=== PATIENT | female | born 1950 | race Two or more races ===

== ENCOUNTER 2022-02-24 14:43 | Outpatient (CLI) | payer OTHER ==
[2022-03-01] MEDS ORDERED: HYDR-3980 PO (12:41)
[2022-03-01] MEDS ORDERED: MAGN400T26 PO (12:41)
[2022-03-01] MEDS ORDERED: APIX5TAB PO (12:41)
[2022-03-01] MEDS ORDERED: PANT40TA49 PO (12:41)
== END 2022-02-24 23:59 | disposition home or self-care (01) ==
LOC: LAB 14:43
PROVIDERS: ATTEND Specialist
DX: Z01.812 Encounter for preprocedural laboratory examination (principal); Z20.822 Contact with and (suspected) exposure to COVID-19
CPT/HCPCS: 87426; U0003; C9803

== ENCOUNTER 2022-02-27 06:19 | Inpatient (IN) | payer OTHER ==
[~2022-02-27] VITALS: Ht 154.9 cm; Wt 59.9 kg
[~2022-02-27 06:19] MED LIST: ANESTHESIA TRAY IN PYXIS 1 EA TRAY MC ONE; BUPIVACAINE 0.5 % PF 150 MG/30 ML VIAL ONE; FENTANYL PF 100MCG/2ML AMPUL ONE; ROCURONIUM BROMIDE 50 MG/5 ML ONE
[2022-02-27] MEDS ORDERED: BUPIVACAINE 0.5 % PF 150 MG/30 ML VIAL ONE (06:21)
[2022-02-27] MEDS ORDERED: BUPIVACAINE 0.25% 75 MG/30 ML VIAL ONE (06:21)
[2022-02-27] MEDS ORDERED: POLYMYXIN B SULFATE 500,000 UNITS ONE (06:21)
--- NOTE | 2022-02-27 06:50 | NUR ---
RN NOTE PATIENT SCHEDULED FOR RIGHT TOTAL KNEE ARTHROPLASTY AT 6:30 AM, BUT PATIENT ARRIVED AT 6:31 AM. PER SURGERY JUST CHANGED PATIENT INTO GOWN AND HAD PATIENT SIGN CONSENT FORMS. MRSA SWAB DONE, VITAL SIGNS TAKEN. PATIENT'S WALKER AND BELONGINGS AT BEDSIDE. PATIENT TAKEN TO OR
[2022-02-27] MEDS ORDERED: TRANEXAMIC ACID 3,000 MG in SODIUM CHLORIDE IRRIG SOLUTION 70 ML IR ONE (07:00)
--- NOTE | 2022-02-27 07:25 | NUR ---
MS RN NOTE PATIENT AT OPERATING ROOM SCHEDULED FOR RIGHT KNEE ARTHROPLASTY UNDER DR. RIOS.
[2022-02-27] MEDS ORDERED: FENTANYL PF 100MCG/2ML AMPUL ONE (09:36)
[2022-02-27] MEDS ORDERED: PANTOPRAZOLE 40 MG TABLET.DR PO ONE (09:40)
[2022-02-27] MEDS: PANTOPRAZOLE 40 MG TABLET.DR PO SCH (10:00)
[2022-02-27] MEDS ORDERED: LORAZEPAM 0.5 MG TABLET PO PRN (10:00)
[2022-02-27] MEDS ORDERED: CLONIDINE HCL 0.1 MG TABLET PO PRN (10:00)
[2022-02-27] MEDS ORDERED: MAGNESIUM HYDROXIDE 30 ML UDC PO PRN (10:00)
[2022-02-27] MEDS ORDERED: HYDROCODONE/APAP 10/325MG TABLET PO PRN (10:00)
[2022-02-27] MEDS ORDERED: diphenhydrAMINE HCL 25 MG CAPSULE PO PRN (10:00)
[2022-02-27] MEDS ORDERED: MENTHOL/CETYLPYRD (CEPACOL) 1 LOZ LOZENGE PO PRN (10:00)
[2022-02-27 10:11] LABS: HEMOGLOBIN 11.8 g/dL (11.5-14.8)
[2022-02-27 11:00] VITALS: BP 132/66
[2022-02-27] MEDS ORDERED: IV D5/0.45 NACL 1,000 ML IV ONE (11:00)
[2022-02-27] MEDS: HYDROMORPHONE 1 MG/1 ML DISP.SYRIN IV PRN (11:25)
--- NOTE | 2022-02-27 11:35 | NUR ---
MS RN NOTE RECEIVED FROM OR TRANSPORTED VIA BED, PATIENT IS ALERT AND ORIENTED X 4, ABLE TO MAKE NEEDS KNOWN. ON ROOM AIR, WITH EQUAL AND UNLABORED BREATHING. PATIENT IN BED, WITH HOB ELEVATED, ALERT AND ORIENTED X4. AFEBRILE AND NOT IN ANY FORM OF ACUTE DISTRESS. BREATHING EVEN AND NON LABORED. NO C/O PAIN OR DISCOMFORT. WITH IV ACCESS ON L FOREARM 22G . S/P RIGHT KNEE TOTAL ANROTHOPLASTY WITH RIGHT LEG COVERED WITH ELASTIC BANDAGE WITH IMMOBILIZER. DRESSING DRY AND INTACT. SAFETY MEASURES IN PLACE. KEPT BED IN LOCKED AND IN LOW POSITION. SIDE RAILS UP X2. NO COMPLAIN OF PAIN AT THIS TIME. COMFORT MEASURES PROVIDED. IN STABLE CONDITION. DR. CASTILLO NOTIFIED OF PATIENT FOR MEDICAL ADMISSION.
[2022-02-27] MEDS ORDERED: DEXL60CA3 PO (11:58)
[2022-02-27] MEDS ORDERED: ICOS1CAP PO (11:58)
[2022-02-27] MEDS ORDERED: LORA-259 PO (11:58)
[2022-02-27] MEDS ORDERED: ASPI-992 PO (11:58)
[2022-02-27] MEDS ORDERED: ATOR10TA PO (11:58)
[2022-02-27] MEDS ORDERED: ZOLP10TA2 PO (11:58)
[2022-02-27] MEDS ORDERED: LEVO88TA39 PO (11:58)
[2022-02-27] MEDS ORDERED: BEMP1TAB PO (11:58)
[2022-02-27] MEDS ORDERED: OLME1TAB16 PO (11:58)
[2022-02-27] MEDS ORDERED: LORAZEPAM 1 MG TABLET PO PRN (13:00)
[2022-02-27] MEDS ORDERED: ZOLPIDEM TARTRATE 10 MG TABLET PO PRN (13:00)
[2022-02-27] MEDS: HYDROCODONE/APAP 5/325MG TABLET PO PRN (15:02)
[2022-02-27] MEDS: ANCEF 1 GM/50 ML D5W IV SCH ×4 (15:04→22:15)
[2022-02-27 16:00] VITALS: BP 104/56
[2022-02-27] MEDS ORDERED: Medication Not On Formulary EA (Icosapent Ethyl (Vascepa) 2 GM) PO SCH (17:00)
--- NOTE | 2022-02-27 19:00 | NUR ---
MS RN CLOSING NOTE PATIENT IS ALERT AND ORIENTED X 4, ABLE TO MAKE NEEDS KNOWN. ON ROOM AIR, WITH EQUAL AND UNLABORED BREATHING. PATIENT IN BED, WITH HOB ELEVATED, ALERT AND ORIENTED X4. AFEBRILE AND NOT IN ANY FORM OF ACUTE DISTRESS. BREATHING EVEN AND NON LABORED. NO C/O PAIN OR DISCOMFORT. WITH IV ACCESS ON L FOREARM 22G . S/P RIGHT KNEE TOTAL ANROTHOPLASTY WITH RIGHT LEG COVERED WITH ELASTIC BANDAGE WITH IMMOBILIZER. DRESSING DRY AND INTACT. SAFETY MEASURES IN PLACE. KEPT BED IN LOCKED AND IN LOW POSITION. SIDE RAILS UP X2. PT DONE AND TOLERATED WELL. PATIENT HAD CPM MACHINE FOR 2 HOURS WITH MINIMAL PAIN. NO COMPLAIN OF PAIN AT THIS TIME. COMFORT MEASURES PROVIDED. IN STABLE CONDITION. ENDORSED TO NEXT SHIFT FOR CONTINUITY OF CARE.
--- NOTE | 2022-02-27 19:30 | NUR ---
MS RN OPENING NOTE RECEIVED PATIENT IN BED, WITH HOB ELEVATED, ALERT AND ORIENTED X4. ABLE TO COMMUNICATE NEEDS WITH THE STAFFS. AFEBRILE AND NOT IN ANY FORM OF ACUTE DISTRESS. BREATHING EVEN AND NON LABORED. NO C/O PAIN OR DISCOMFORT. WITH IV ACCESS ON L FOREARM 22G RUNNING WITH D5 1/2NS AT 125 ML/HR. WITH IMMOBILIZER ON R LEG. SAFETY MEASURES IN PLACE. KEPT BED IN LOCKED AND IN LOW POSITION. SIDE RAILS UP X2. ADVISED TO USE THE CALL LIGHT WHEN IN NEED OF ASSISTANCE.
[2022-02-27 20:00] VITALS: BP 124/51
--- NOTE | 2022-02-27 21:30 | NUR ---
MS RN NOTE PATIENT C/O HYPERACIDITY AND REQUESTED IF SHE CAN TAKE 1 PROTONIX TONIGHT. PATIENT HAS SCHEDULED PROTONIX BUT EXPLAINED THAT IT IT USUALLY GIVEN IN THE MORNING PRIOR TO BREAKFAST. NOTIFIED ABOUT THE PATIENT'S REQUEST AND DR. JUSTIN GAVE OKAY AND MAY ADMINISTER 1 TONIGHT. REVIEWED MEDICATIONS AND PATIENT HAS PRN MAALOX AND OFFERED IT AND AGREED INSTEAD OF PROTONIX. NOTED AND CARRIED OUT.
[2022-02-27] MEDS ORDERED: LEVOTHYROXINE SODIUM 88 MCG TABLET PO SCH (22:00)
[2022-02-27] MEDS: MAG HYDROX/AL HYDROX/SIMETH 30 ML UDC PO PRN (22:03)
[2022-02-27] MEDS: ZOLPIDEM TARTRATE 10 MG TABLET PO PRN (22:04)
[2022-02-28] MEDS: MAG HYDROX/AL HYDROX/SIMETH 30 ML UDC PO PRN ×2 (05:19→17:03)
--- NOTE | 2022-02-28 06:30 | NUR ---
MS CLOSING NOTE PATIENT IN BED, WITH HOB ELEVATED, ASLEEP BUT EASY TO AROUSE AND RESPONSIVE. ABLE TO COMMUNICATE NEEDS WITH THE STAFFS. AFEBRILE AND NOT IN ANY FORM OF ACUTE DISTRESS. BREATHING EVEN AND NON LABORED. WITH IV ACCESS ON L FOREARM 22G-SL. WITH IMMOBILIZER ON R LEG. MEDICATED ORDERED. ON IV ATB, MONITORED FOR ANY ADVERSE REACTION. SAFETY MEASURES IN PLACE. KEPT BED IN LOCKED AND IN LOW POSITION. SIDE RAILS UP X2. ADVISED TO USE THE CALL LIGHT WHEN IN NEED OF ASSISTANCE. ENCOURAGED TO TURN AND REPOSITION EVERY 2 HOURS AND TOLERATED TO PROMOTE PROPER CIRCULATION AND COMFORT. CONSTANT VISUAL CHECK DONE TO ENSURE SAFETY. ALL NURSING NEEDS ATTENDED. ENODRSED TO INCOMING SHIFT FOR CONTINUITY OF CARE.
[2022-02-28] MEDS: LEVOTHYROXINE SODIUM 88 MCG TABLET PO SCH ×3 (07:38→08:28)
--- NOTE | 2022-02-28 07:55 | NUR ---
RN OPENING NOTE RECEIVED PATIENT IN BED, ALERT AND ORIENTED X4. ABLE TO VERBALIZE NEEDS. NO S/S OF DISTRESS OR SOB NOTED, PT ON RA BREATHING EVEN AND NONLABORED. IV ACCESS LFA 22G, PATENT AND INTACT, SL. PT WITH IMMOBILIZER ON R LEG. SAFETY PRECAUTIONS IN PLACE: CALL LIGHT AND TABLE WITHIN REACH, HOB ELEVATED. SIDE RAILS UP X 2, BED IN LOWEST AND LOCKED POSITION. WILL CONTINUE MONITOR PATIENT'S CONDITION THROUGH THE SHIFT AND PROVIDE THE CARE.
[2022-02-28] MEDS: HYDROCHLOROTHIAZIDE 25 MG TABLET PO SCH (08:25)
[2022-02-28] MEDS: PANTOPRAZOLE 40 MG TABLET.DR PO SCH (08:26)
[2022-02-28] MEDS: LOSARTAN POTASSIUM 50 MG TABLET PO SCH (08:26)
[2022-02-28] MEDS: HYDROMORPHONE 1 MG/1 ML DISP.SYRIN IV PRN ×3 (08:46→22:53)
[2022-02-28] MEDS: ONDANSETRON HCL/PF 4 MG/2 ML VIAL IV PRN ×3 (08:47→22:53)
[2022-02-28] MEDS ORDERED: ASPIRIN 325 MG TABLET PO SCH (09:00)
--- NOTE | 2022-02-28 09:51 | NUR ---
RN NOTE PT REFUSED PO PAIN MEDICATION BECAUSE OF NAUSEA, MEDICATED WITH ZOFRAN. BRAXTON RETURNED.
--- NOTE | 2022-02-28 10:05 | NUR ---
SW received consult request for discharge plans. SW will follow up today.
[2022-02-28] MEDS: HYDROCODONE/APAP 5/325MG TABLET PO PRN ×2 (13:12→17:32)
[2022-02-28 13:45] LABS: CALCIUM, SERUM 8.1 mg/dL (8.5-10.1); POTASSIUM 3.8 mmol/L (3.5-5.1)
--- NOTE | 2022-02-28 18:50 | NUR ---
RN CLOSING NOTE PATIENT AWAKE IN BED. ABLE TO COMMUNICATE NEEDS WITH THE STAFFS. PATIENT DOES NOT COMPLAIN OF ANY PAIN AT THE MOMENT. PT ON RA, BREATHING EVEN AND NON LABORED. WITH IV ACCESS ON L FOREARM 22G-SL. WITH IMMOBILIZER ON R LEG. MEDICATED ORDERED. ALL NEEDS MET. PT KEPT CLEAN AND DRY. SAFETY MEASURES IMPLEMENTED. ALL NEEDS MET AND ATTENDED. ALL ORDERS CARRIED OUT. WILL ENDORSED TO CREW SCHEDULER NURSE FOR SANDHYA.
--- NOTE | 2022-02-28 19:30 | NUR ---
noc rn opening note received patient sitting in bed. a/ox4. no s/s of apparent distress on room air. pain tolerable at this time per patient, given ice pack. no c/o nausea at this time. Rt. leg with maximilian wrapped clean, dry, and intact. l. fa #22g on saline lock. call light within reach. safety in place. patient is for pain management. questions and concerns answered at this time. encouraged with the use of call light. will continue with plan of care for patient.
[2022-02-28 20:00] VITALS: BP 130/49
[2022-02-28] MEDS: ZOLPIDEM TARTRATE 10 MG TABLET PO PRN (21:38)
[2022-03-01] MEDS: ONDANSETRON HCL/PF 4 MG/2 ML VIAL IV PRN ×2 (03:51→15:51)
[2022-03-01] MEDS: HYDROMORPHONE 1 MG/1 ML DISP.SYRIN IV PRN ×2 (03:51→15:51)
[2022-03-01 06:59] LABS: BASOPHILS % (AUTO) 0.2 % (0.0-2.0); EOSINOPHILS % (AUTO) 0.2 % (0.0-6.0); HEMATOCRIT 33 % (33-45); HEMOGLOBIN 11.2 g/dL (11.5-14.8); LYMPHOCYTES # (AUTO) 0.7 K/uL (0.8-4.8); LYMPHOCYTES % (AUTO) 6.3 % (20.0-44.0); MEAN CORPUSCULAR HGB CONC 35 g/dl (31.0-36.0); MEAN CORPUSCULAR VOLUME 91 fL (82-100); MONOCYTES # (AUTO) 0.8 K/uL (0.1-1.30); MONOCYTES % (AUTO) 7.8 % (2.0-12.0); NEUTROPHILS % (AUTO) 85.5 % (43.0-81.0); PLATELET COUNT (AUTO) 220 K/uL (150-450); RED BLOOD CELL COUNT(AUTO) 3.59 MIL/uL (4.0-5.2); WHITE BLOOD COUNT (AUTO) 10.5 K/uL (4.3-11.0)
[2022-03-01 07:11] LABS: CALCIUM, SERUM 8.6 mg/dL (8.5-10.1); CREATININE 0.8 mg/dL (0.6-1.3); PHOSPHORUS 3.2 mg/dL (2.5-4.9); POTASSIUM 3.9 mmol/L (3.5-5.1)
--- NOTE | 2022-03-01 07:36 | NUR ---
noc rn closing needs attended. report given to ALY Bauer for continuity of patient care.
--- NOTE | 2022-03-01 07:50 | NUR ---
RN OPENING NOTE PATIENT AWAKE IN BED RESTING AT THE MOMENT A/O X 4. NO S/S OF PAIN NOTED AT THIS TIME. ON ROOM AIR, NO DISTRESS OR SHORTNESS OF BREATH NOTED. IV ACCESS LFA #20G, INTACT, PATENT AND FLUSHING WELL. FALL AND SAFETY MEASURES IN PLACE, BED ALARM ON, BED IN LOW AND LOCK POSITION, CALL LIGHT AND TABLE WITHIN EASY REACH, SIDE RAILS UP X2. WILL CONTINUE TO MONITOR.
[2022-03-01 08:00] VITALS: BP 119/54
[2022-03-01] MEDS: PANTOPRAZOLE 40 MG TABLET.DR PO SCH (08:47)
[2022-03-01] MEDS: APIXABAN 5 MG TABLET PO SCH ×2 (08:48→17:10)
[2022-03-01] MEDS: LOSARTAN POTASSIUM 50 MG TABLET PO SCH (08:49)
[2022-03-01] MEDS: HYDROCHLOROTHIAZIDE 25 MG TABLET PO SCH (08:50)
[2022-03-01] MEDS: LEVOTHYROXINE SODIUM 88 MCG TABLET PO SCH (08:51)
--- NOTE | 2022-03-01 10:18 | NUR ---
RN NOTE PATIENT REQUEST FOR MAGNESIUM OXINATE 200MG, PATIENT STATED SHE TAKE IT AT HOME FOR MUSCLE SPASMS. DOCTOR (DESI SAXENA) WAS INFORMED AT BED SIDE AND ORDERED MAGNESIUM OXIDE 200MG PO DAILY. ORDERED WAS PLACED. PATIENT REQUESTED SPECIFICALLY MAGNESIUM OXINATE BUT PER PHARMACY WE DO NOT HAVE IT, MAGNESIUM OXIDE WAS ORDERED INSTEAD.
[2022-03-01] MEDS: MAGNESIUM OXIDE 400 MG TABLET PO SCH (10:59)
[2022-03-01] MEDS ORDERED: HYDR-3980 PO (12:41)
[2022-03-01] MEDS ORDERED: MAGN400T26 PO (12:41)
[2022-03-01] MEDS ORDERED: APIX5TAB PO (12:41)
[2022-03-01] MEDS ORDERED: PANT40TA49 PO (12:41)
[2022-03-01] MEDS ORDERED: oxyCODONE IR immediate release 5 MG PO ONE (13:30)
--- NOTE | 2022-03-01 13:33 | NUR ---
RN NOTE PATIENT ALLERGIES STATUS HAVE BEING CHANGE PER DOCTOR KARLI IS OK TO GIVE OXYCODONE TO PATIENT, PATIENT STATED THAT WHEN SHE TAKE OXYCODONE HER REACTION IS LIGHT HEADACHE AND DIZZINESS. DOCTOR STATED FOR PATIENT TO TAKE IT WITH FOOD NOT ON AN EMPTY STOMACH. PATIENT STATED TO HAVE NO OTHER ALLERGIES.
[2022-03-01] MEDS ORDERED: oxyCODONE IR immediate release 5 MG PO PRN (15:00)
[2022-03-01] MEDS ORDERED: APIXABAN 5 MG TABLET PO SCH (17:00)
--- NOTE | 2022-03-01 19:36 | NUR ---
RN CLOSING NOTE PATIENT AWAKE IN BED RESTING AT THE MOMENT A/O X 4. NO S/S OF PAIN NOTED AT THIS TIME. ON ROOM AIR, NO DISTRESS OR SHORTNESS OF BREATH NOTED. IV ACCESS LFA #20G, INTACT, PATENT AND FLUSHING WELL. SCHEDULE MEDICATIONS ADMINISTERED. FALL AND SAFETY MEASURES IN PLACE, BED ALARM ON, BED IN LOW AND LOCK POSITION, CALL LIGHT AND TABLE WITHIN EASY REACH, SIDE RAILS UP X2. WILL ENDORSE TO SEED POTATO CUTTER.
[2022-03-01 20:00] VITALS: BP 144/81
--- NOTE | 2022-03-01 20:02 | NUR ---
RN OPENING NOTE PATIENT AWAKE IN BED. A/OX4. NO S/S OF DISTRESS, BREATHING WITHOUT DIFFICULTY ON ROOM AIR. LFA #20 SL INTACT AND PATENT. SAFETY MEASURES IN PLACE: BED LOCKED AND AT LOWEST POSITION, RAILS UP X2, CALL VILLA WITHIN REACH. WILL CONTINUE TO MONITOR PATIENT.
[2022-03-01] MEDS: MAG HYDROX/AL HYDROX/SIMETH 30 ML UDC PO PRN (20:19)
[2022-03-01] MEDS: ZOLPIDEM TARTRATE 10 MG TABLET PO PRN (21:50)
--- NOTE | 2022-03-02 06:59 | NUR ---
RN CLOSING NOTE PATIENT ASLEEP IN BED. A/OX4. NO S/S OF DISTRESS, BREATHING WITHOUT DIFFICULTY ON ROOM AIR. LFA #22 SL INTACT AND PATENT. SAFETY MEASURES IN PLACE: BED LOCKED AND IN PLACE, RAILS UP X2, CALL VILLA WITHIN REACH. WILL ENDORSE TO NEXT SHIFT FOR SANDHYA.
--- NOTE | 2022-03-02 07:20 | NUR ---
MS RN RECEIVED ON BED, AWAKE,ALERT,ORIENTED X4,NOT IN ANY FORM OF DISTRESS, RESPIRATIONS EVEN AND UNLABORED,NO SOB NOTED, LUNGS ARE CLEAR,ABDOMEN SOFT,POSITIVE BOWEL SOUNDS,DENIES PAIN AT THIS TIME, WILL MONITOR PATIENT.
[2022-03-02 08:00] VITALS: BP 100/68
[2022-03-02] MEDS: LEVOTHYROXINE SODIUM 88 MCG TABLET PO SCH (08:25)
[2022-03-02] MEDS: PANTOPRAZOLE 40 MG TABLET.DR PO SCH (08:25)
--- NOTE | 2022-03-02 09:00 | NUR ---
ms joya breakfast served,due meds given,tolerated well.
[2022-03-02] MEDS: MAGNESIUM OXIDE 400 MG TABLET PO SCH (09:21)
[2022-03-02] MEDS: LOSARTAN POTASSIUM 50 MG TABLET PO SCH (09:22)
[2022-03-02] MEDS: HYDROCHLOROTHIAZIDE 25 MG TABLET PO SCH (09:22)
[2022-03-02] MEDS: APIXABAN 5 MG TABLET PO SCH ×2 (09:23→16:56)
[2022-03-02] MEDS: HYDROMORPHONE 1 MG/1 ML DISP.SYRIN IV PRN ×3 (09:31→18:30)
[2022-03-02] MEDS: ONDANSETRON HCL/PF 4 MG/2 ML VIAL IV PRN ×2 (10:07→22:12)
--- NOTE | 2022-03-02 11:00 | NUR ---
ms rn up w/ physical therapist,tolerated well.
[2022-03-02 16:00] VITALS: BP 121/46
[2022-03-02] MEDS: SENNOSIDES 8.6 MG TABLET PO SCH (16:59)
--- NOTE | 2022-03-02 18:08 | NUR ---
ms rn on bed,no distress noted, medicated for pain,all needs attended.
[2022-03-02] MEDS: MAG HYDROX/AL HYDROX/SIMETH 30 ML UDC PO PRN (18:38)
--- NOTE | 2022-03-02 19:40 | NUR ---
MS RN OPENING NOTE RECEIVED PATIENT IN BED; AWAKE, ALERT AND ORIENTED X 4. ON ROOM AIR; TOLERATING WELL. BREATHING EVEN AND NONLABORED. NOT IN ANY FORM OF RESPIRATORY DISTRESS. NO C/O PAIN OR DISCOMFORT MADE AT THIS TIME. WITH IV ACCESS @ LEFT FOREARM; PATENT, INTACT AND SALINE LOCKED. ABLE TO MAKE NEEDS KNOWN. SAFETY MEASURES IMPLEMENTED: CALL LIGHT AND TABLE WITHIN REACH, SIDE RAILS UP X 3, BED IN LOWEST LOCKED POSITION. WILL CONTINUE TO MONITOR.
[2022-03-02 20:00] VITALS: BP 95/63
[2022-03-02 20:35] VITALS: BP 95/63
--- NOTE | 2022-03-02 22:23 | NUR ---
RN NOTE PATIENT FEELS NAUSEOUS. ONDANSETRON 4 MG REMOVED FROM OMNICELL AND WASTED. PATIENT'S IV ACCESS NOT PATENT. PATIENT REFUSED IV REINSERTION FOR NOW. WILL CONTINUE TO MONITOR.
[2022-03-03] VITALS: BP 107/70
[2022-03-03] MEDS: ZOLPIDEM TARTRATE 10 MG TABLET PO PRN (01:11)
[2022-03-03] MEDS: HYDROMORPHONE 1 MG/1 ML DISP.SYRIN IV PRN ×3 (02:20→13:55)
--- NOTE | 2022-03-03 02:20 | NUR ---
RN NOTE PATIENT COMPLAINED OF RIGHT KNEE PAIN WITH PAIN SCALE OF 8/10. PRN DILAUDID INJ 0.5 MG GIVEN IV ORDERED. WILL CONTINUE TO MONITOR AND REASSESS PT.
[2022-03-03 07:00] VITALS: BP 123/65
--- NOTE | 2022-03-03 07:00 | NUR ---
MS RN CLOSING NOTE PATIENT IN BED; AWAKE, A/O X 4. STABLE ON ROOM AIR. BREATHING EQUAL AND UNLABORED. IN NO ACUTE DISTRESS. NO C/O PAIN OR DISCOMFORT MADE AT THIS TIME. WITH IV ACCESS @ RIGHT HAND 22G: PATENT, INTACT AND SALINE LOCKED. ALL NEEDS ATTENDED. SAFETY MEASURES MAINTAINED: CALL LIGHT AND TABLE WITHIN REACH, SIDE RAILS UP X 3, BED IN LOWEST LOCKED POSITION. ENDORSED TO MORNING SHIFT FOR SANDHYA.
--- NOTE | 2022-03-03 07:10 | NUR ---
MS RN RECEIVED ON BED, AWAKE,ALERT,ORIENTED X4,S/P LEFT KNEE SURGERY W/ DRESSING DRY AND INTACT, COVERED W/ CHERI BANDAGE, DENIES PAIN AT THIS TIME,NO SOB NOTED, WILL MONITOR PATIENT.
[2022-03-03] MEDS: LEVOTHYROXINE SODIUM 88 MCG TABLET PO SCH (08:43)
[2022-03-03] MEDS: PANTOPRAZOLE 40 MG TABLET.DR PO SCH (08:44)
[2022-03-03] MEDS ORDERED: MAGNESIUM HYDROXIDE 30 ML UDC PO ONE (08:59)
[2022-03-03] MEDS ORDERED: LORAZEPAM 0.5 MG TABLET PO ONE (08:59)
--- NOTE | 2022-03-03 09:00 | NUR ---
MS RN DILAUDID AND ZOFRAN IV GIVEN, C/O PAIN AND VOMITING, WAS SEEN BY DR. CALVILLO W/ ORDERS MADE AND CARRIED OUT.
[2022-03-03] MEDS: MAGNESIUM OXIDE 400 MG TABLET PO SCH (09:01)
[2022-03-03] MEDS: LOSARTAN POTASSIUM 50 MG TABLET PO SCH (09:02)
[2022-03-03] MEDS: SENNOSIDES 8.6 MG TABLET PO SCH (09:02)
[2022-03-03] MEDS: HYDROCHLOROTHIAZIDE 25 MG TABLET PO SCH (09:03)
[2022-03-03] MEDS: APIXABAN 5 MG TABLET PO SCH ×2 (09:04→17:00)
[2022-03-03] MEDS: ONDANSETRON HCL/PF 4 MG/2 ML VIAL IV PRN ×2 (09:17→13:54)
--- NOTE | 2022-03-03 10:05 | NUR ---
MS LU WAS SEEN BY AARON SAXENA W/ ORDERS MADE AND CARRIED OUT.
--- NOTE | 2022-03-03 11:20 | NUR ---
MS RN UP W/ PT, WALKED W/FWW, TOLERATED WELL.
--- NOTE | 2022-03-03 12:34 | NUR ---
MS RN ON BED, ALL NEEDS ATTENDED.
[2022-03-03 14:28] LABS: BASOPHILS % (AUTO) 0.2 % (0.0-2.0); EOSINOPHILS % (AUTO) 0.2 % (0.0-6.0); HEMATOCRIT 31 % (33-45); HEMOGLOBIN 10.7 g/dL (11.5-14.8); LYMPHOCYTES # (AUTO) 0.4 K/uL (0.8-4.8); LYMPHOCYTES % (AUTO) 5.4 % (20.0-44.0); MEAN CORPUSCULAR HGB CONC 34 g/dl (31.0-36.0); MEAN CORPUSCULAR VOLUME 89 fL (82-100); MONOCYTES # (AUTO) 0.5 K/uL (0.1-1.30); MONOCYTES % (AUTO) 6.2 % (2.0-12.0); NEUTROPHILS # (AUTO) 7.1 K/uL (1.8-8.9); PLATELET COUNT (AUTO) 253 K/uL (150-450); RED BLOOD CELL COUNT(AUTO) 3.48 MIL/uL (4.0-5.2)
[2022-03-03 15:42] LABS: CALCIUM, SERUM 8.2 mg/dL (8.5-10.1); CREATININE 0.9 mg/dL (0.6-1.3); POTASSIUM 3.1 mmol/L (3.5-5.1)
[2022-03-03 15:43] LABS: ALBUMIN 2.9 g/dL (3.4-5.0); BILIRUBIN,DIRECT 0.4 mg/dL (0.0-0.2); PHOSPHORUS 2.5 mg/dL (2.5-4.9); TOTAL PROTEIN, SERUM 6.6 g/dL (6.4-8.2)
--- NOTE | 2022-03-03 17:25 | NUR ---
rn ngt inserted, in placement as verified by x ray, w/ yellowish output, connected to low suction.
--- NOTE | 2022-03-03 17:26 | NUR ---
ms rn on bed, no distress noted, was seen by dr. brewster, awaiting for d/c
--- NOTE | 2022-03-03 19:50 | NUR ---
MS RN OPENING NOTE PATIENT IN BED; AWAKE, A/O X 4. STABLE ON ROOM AIR. BREATHING EQUAL AND UNLABORED. IN NO ACUTE DISTRESS. NO C/O PAIN OR DISCOMFORT MADE AT THIS TIME. WITH IV ACCESS @ RIGHT HAND 22G: PATENT, INTACT AND SALINE LOCKED. PT WITH NG TUBE TO THE L NARE WITH LOW INTERMITTENT SUCTION NOTED 400CC OF RED COLORED OUTPUT DURING DAY SHIFT.ALL NEEDS ATTENDED. SAFETY MEASURES MAINTAINED: CALL LIGHT AND TABLE WITHIN REACH, SIDE RAILS UP X 3, BED IN LOWEST LOCKED POSITION.
[2022-03-03 20:00] VITALS: BP 121/60
[2022-03-03] MEDS ORDERED: POTASSIUM CHLORIDE 10 MEQ/50 ML PREMIXED IVPB FOR PERIPHERAL LINE IV ONE (20:00)
[2022-03-03] MEDS: IV D5/ 0.9% NACL 1,000 ML IV PRN (20:36)
[2022-03-03] MEDS ORDERED: POTASSIUM CL. PREMIX PERIPHER. 50 ML IV SCH (21:00)
--- NOTE | 2022-03-03 21:44 | NUR ---
RN NOTE PT VERY FORGETFUL DESPITE MULTIPLE REMINDERS THAT SHE IS NPO SHE KEEPS ASKING FOR FOOD AND WATER. EXPLAINED TO PT WHY SHE IS NPO SHE VERBALIZES UNDERSTANDING BUT STILL KEEPS ASKING ME IF SHE CAN DRINK WATER.
[2022-03-03] MEDS ORDERED: CEFEPIME 1 GM VIAL IV SCH (22:00)
[2022-03-03] MEDS ORDERED: CEFEPIME 1 GM in IV D5W 50 ML IV SCH (22:00)
[2022-03-03] MEDS ORDERED: CEFEPIME 1 GM VIAL ONE (22:44)
--- NOTE | 2022-03-04 06:43 | NUR ---
MS RN CLOSING NOTE PATIENT IN BED; AWAKE, A/O X 4. STABLE ON ROOM AIR. BREATHING EQUAL AND UNLABORED. IN NO ACUTE DISTRESS. NO C/O PAIN OR DISCOMFORT MADE AT THIS TIME. WITH IV ACCESS @ lfa #22 g PATENT, INTACT RUNNING D5 NS @50ML/HR. PT WITH NG TUBE TO THE L NARE WITH LOW INTERMITTENT SUCTION NOTED 200 CC OUTPUT DURING SHIFT.ALL NEEDS ATTENDED. SAFETY MEASURES MAINTAINED: PT REMAINS NPO. CALL LIGHT AND TABLE WITHIN REACH, SIDE RAILS UP X 3, BED IN LOWEST LOCKED POSITION.
--- NOTE | 2022-03-04 07:10 | NUR ---
ms rn received on bed, awake,alert,oriented x4, not in any form of distress, respirations even and unlabored,no sob noted, s/p right knee sx w. dressing dry and intact,denies pain at this time, ngt inplace, connected to low intermittent suction w/ pinkish secretions, all needs attended.
[2022-03-04] MEDS: LEVOTHYROXINE SODIUM 88 MCG TABLET PO SCH (07:30)
[2022-03-04] MEDS ORDERED: DIATR MEGLU/DIATRIZOATE SODIUM 120 ML BOTTLE (GASTROGRAPHIN) ONE (07:37)
[2022-03-04] MEDS: HYDROCHLOROTHIAZIDE 25 MG TABLET PO SCH (07:39)
[2022-03-04] MEDS: LOSARTAN POTASSIUM 50 MG TABLET PO SCH (07:39)
[2022-03-04] MEDS: APIXABAN 5 MG TABLET PO SCH ×2 (07:39→16:37)
[2022-03-04] MEDS: PANTOPRAZOLE 40 MG TABLET.DR PO SCH (07:40)
[2022-03-04] MEDS: MAGNESIUM OXIDE 400 MG TABLET PO SCH (07:40)
[2022-03-04] MEDS: SENNOSIDES 8.6 MG TABLET PO SCH (07:40)
[2022-03-04 07:59] LABS: BASOPHILS % (AUTO) 0.1 % (0.0-2.0); EOSINOPHILS % (AUTO) 0.7 % (0.0-6.0); HEMATOCRIT 29 % (33-45); LYMPHOCYTES # (AUTO) 0.8 K/uL (0.8-4.8); LYMPHOCYTES % (AUTO) 7.2 % (20.0-44.0); MEAN CORPUSCULAR HGB CONC 34 g/dl (31.0-36.0); MEAN CORPUSCULAR VOLUME 90 fL (82-100); MONOCYTES # (AUTO) 0.9 K/uL (0.1-1.30); MONOCYTES % (AUTO) 8.8 % (2.0-12.0); NEUTROPHILS # (AUTO) 8.8 K/uL (1.8-8.9); NEUTROPHILS % (AUTO) 83.2 % (43.0-81.0); PLATELET COUNT (AUTO) 273 K/uL (150-450); RED BLOOD CELL COUNT(AUTO) 3.25 MIL/uL (4.0-5.2); WHITE BLOOD COUNT (AUTO) 10.6 K/uL (4.3-11.0)
[2022-03-04 08:00] VITALS: BP 130/61
[2022-03-04 08:22] LABS: CALCIUM, SERUM 7.9 mg/dL (8.5-10.1); CREATININE 0.8 mg/dL (0.6-1.3); MAGNESIUM 2.4 mg/dL (1.8-2.4); PHOSPHORUS 2.6 mg/dL (2.5-4.9); POTASSIUM 2.9 mmol/L (3.5-5.1)
--- NOTE | 2022-03-04 09:00 | NUR ---
ms rn npo at this time, patient will have small bowel follow through today.
--- NOTE | 2022-03-04 09:30 | NUR ---
ms rn patient went down for procedure now,
[2022-03-04] MEDS ORDERED: CEFAZOLIN 2 GM in IV D5W 100 ML IV SCH (10:00)
[2022-03-04] MEDS: CEFEPIME 2 GM in IV D5W 100 ML IV SCH (12:42)
[2022-03-04] MEDS: POTASSIUM CL. PREMIX PERIPHER. 50 ML IV SCH ×4 (13:26→17:26)
[2022-03-04] MEDS: HYDROMORPHONE 1 MG/1 ML DISP.SYRIN IV PRN ×3 (13:32→23:03)
[2022-03-04] MEDS: ONDANSETRON HCL/PF 4 MG/2 ML VIAL IV PRN ×3 (13:32→22:53)
--- NOTE | 2022-03-04 14:00 | NUR ---
ms rn remains on npo for second picture taking later.
[2022-03-04 16:00] VITALS: BP 126/71
--- NOTE | 2022-03-04 18:44 | NUR ---
ms rn medicated for pain and nausea, waiting for third picture at 7-730 pm.
--- NOTE | 2022-03-04 18:44 | NUR ---
ms rn on bed, all needs attended.
[2022-03-04 20:00] VITALS: BP 129/58
[2022-03-04] MEDS: ZOLPIDEM TARTRATE 10 MG TABLET PO PRN (22:38)
--- NOTE | 2022-03-05 01:45 | NUR ---
Called CT and explained that the pt has a small F/T started and as told X2 that they would come take last of the series at 23:30 if not then 00:15, explained to them she want her NGT to be placed on suction and we need his done, and that the MD Runner as asking for the results of the test. CT CHERRIE here after the XRAY was done resumed NGT to suction brownish rd drainage KUB orderedfor 8AM this AM
[2022-03-05] MEDS: HYDROMORPHONE 1 MG/1 ML DISP.SYRIN IV PRN ×3 (02:25→22:11)
[2022-03-05] MEDS: IV D5/ 0.9% NACL 1,000 ML IV PRN (04:21)
--- NOTE | 2022-03-05 04:44 | NUR ---
Closing Notes: A/O X4 Changes her own position in the bed NGT to low Intermit suction reddish brown in color Left Nostril SBFT last Photo taken 02:00 last night MD FORD called and ordered a STAT KUB for this AM Patient is NPO Refused the INC SPIR at this time Medicated with IV Dilaudid 0.5 mg for ABD PAIN and effective VIA Auscultation no BS and soft Ambien 10 mg given for sleep and effecive Right Knee bias wrap CDI
[2022-03-05] MEDS: LEVOTHYROXINE SODIUM 88 MCG TABLET PO SCH (07:30)
[2022-03-05 07:58] LABS: BASOPHILS % (AUTO) 0.1 % (0.0-2.0); EOSINOPHILS % (AUTO) 0.3 % (0.0-6.0); HEMATOCRIT 28 % (33-45); HEMOGLOBIN 9.6 g/dL (11.5-14.8); LYMPHOCYTES # (AUTO) 0.7 K/uL (0.8-4.8); LYMPHOCYTES % (AUTO) 7.3 % (20.0-44.0); MEAN CORPUSCULAR HGB CONC 34 g/dl (31.0-36.0); MEAN CORPUSCULAR VOLUME 90 fL (82-100); MONOCYTES # (AUTO) 0.8 K/uL (0.1-1.30); MONOCYTES % (AUTO) 8.2 % (2.0-12.0); NEUTROPHILS # (AUTO) 8.5 K/uL (1.8-8.9); NEUTROPHILS % (AUTO) 84.1 % (43.0-81.0); PLATELET COUNT (AUTO) 322 K/uL (150-450); RED BLOOD CELL COUNT(AUTO) 3.15 MIL/uL (4.0-5.2); WHITE BLOOD COUNT (AUTO) 10.1 K/uL (4.3-11.0)
[2022-03-05 08:00] VITALS: BP 113/67
--- NOTE | 2022-03-05 08:13 | NUR ---
MS RN OPENING NOTE Patient in bed, awake. A/O x 4, able to make needs known. On room air, breathing evenly and unlabored. No SOB or s/s of distress noted. IV access on LAC #22 infusing D5NS at 50 ml/hr. NGT in place in LIS, draining to a red-brown drainage. Safety precautions in place: bed in low, locked position; siderails up x2; call light within reach. Will continue to monitor.
[2022-03-05 08:26] LABS: CALCIUM, SERUM 8.1 mg/dL (8.5-10.1); CREATININE 0.7 mg/dL (0.6-1.3); MAGNESIUM 2.5 mg/dL (1.8-2.4); PHOSPHORUS 3.4 mg/dL (2.5-4.9); POTASSIUM 3.3 mmol/L (3.5-5.1)
[2022-03-05] MEDS: SENNOSIDES 8.6 MG TABLET PO SCH (09:00)
[2022-03-05] MEDS: PANTOPRAZOLE 40 MG TABLET.DR PO SCH (09:00)
[2022-03-05] MEDS: MAGNESIUM OXIDE 400 MG TABLET PO SCH (09:00)
[2022-03-05] MEDS: HYDROCHLOROTHIAZIDE 25 MG TABLET PO SCH (10:08)
[2022-03-05] MEDS: LOSARTAN POTASSIUM 50 MG TABLET PO SCH (10:09)
[2022-03-05] MEDS: APIXABAN 5 MG TABLET PO SCH ×2 (10:13→16:34)
[2022-03-05] MEDS: CEFEPIME 2 GM in IV D5W 100 ML IV SCH (10:57)
[2022-03-05] MEDS: POTASSIUM CL. PREMIX PERIPHER. 50 ML IV SCH ×2 (11:35→12:37)
[2022-03-05 12:00] VITALS: BP 110/75
[2022-03-05] MEDS ORDERED: POTASSIUM CL. PREMIX PERIPHER. 50 ML IV SCH (12:30)
--- NOTE | 2022-03-05 12:30 | NUR ---
RN NOTE Patient brought to OR for surgery.
[2022-03-05] MEDS ORDERED: BUPIVACAINE 0.5 % PF 150 MG/30 ML VIAL ONE (13:01)
[2022-03-05] MEDS ORDERED: ANESTHESIA TRAY IN PYXIS 1 EA TRAY MC ONE (13:01)
[2022-03-05] MEDS ORDERED: ROCURONIUM BROMIDE 50 MG/5 ML ONE (13:20)
[2022-03-05] MEDS ORDERED: HYDROMORPHONE INJ 2 MG/ML DISP.SYRIN ONE (13:20)
[2022-03-05 16:00] VITALS: BP 112/57
--- NOTE | 2022-03-05 16:00 | NUR ---
RN NOTE Patient brought back to room 317-1 from surgery. S/P Explor Lap with lysis of adhesion with release of small bowel obstruction. Surgical incision on abdomen c/d/i. On O2 at 2LPM via NC, no SOB or s/s of distress noted. NGT in place on LIS. Putnam catheter placed in OR, draining to an siena colored urine. VS taken as follows: BP 112/57, HR 71, RR 18, Temp 97.7, SPO2 95%. Will continue to monitor.
--- NOTE | 2022-03-05 16:15 | NUR ---
RN NOTE Patient remains stable. Surgical incision c/d/i. VS as follows: BP 110/57, HR 73, RR 18, Temp 97.9, SPO2 96%. Will continue to monitor.
--- NOTE | 2022-03-05 16:30 | NUR ---
RN NOTE Patient remains stable. Surgical incision c/d/i. VS as follows: BP 112/57, HR 80, RR 18, Temp 98.1, SPO2 95%. Will continue to monitor.
--- NOTE | 2022-03-05 16:45 | NUR ---
RN NOTE Patient remains stable. Surgical incision c/d/i. VS as follows: BP 115/57, HR 78, RR 18, Temp 97.8, SPO2 95%. Will continue to monitor.
--- NOTE | 2022-03-05 17:00 | NUR ---
RN NOTE Patient remains stable. Surgical incision c/d/i. VS as follows: BP 118/67, HR 80, RR 18, Temp 98, SPO2 96%. Will continue to monitor.
[2022-03-05] MEDS ORDERED: METOCLOPRAMIDE HCL 10 MG/2 ML VIAL IV PRN (18:00)
--- NOTE | 2022-03-05 18:01 | NUR ---
RN NOTE Patient complained of pain on abdomen, 8/10 on pain scale. PRN Dilaudid 0.5 mg given. Will continue to monitor.
--- NOTE | 2022-03-05 19:00 | NUR ---
noc rn opening note received patient in bed, with eyes closed, easy to arouse. no s/s of apparent distress in 2lpm of o2 via nc. pain tolerable at this time per patient. patient has NG tube in rt. nare 60 cm in noted and secured in place connected to low intermittent suction with brown reddish output. abdomen with dressing, dry and intact and with abdominal binder in place. rt. leg noted to have maximilian wrap on surgical site, clean, dry, and intact. gatica catheter noted in place draining siena urine. L.AC #22g running D5NS @50mls/hr. call light within reach. safety in place. will continue with patient's plan of care.
--- NOTE | 2022-03-05 19:27 | NUR ---
MS RN CLOSING NOTE Patient in bed, asleep. A/O x 4, able to make needs known. On O2 at 2 LPM, breathing evenly and unlabored. No SOB or s/s of distress noted. IV access on LAC #22 infusing D5NS at 50 ml/hr. NGT in place in LIS, draining to a red-brown drainage with an output of 250cc. Putnam catheter in place draining to an siena colored urine with an output of 150 cc. Safety precautions in place: bed in low, locked position; siderails up x2; call light within reach. Will endorse to night custodian nurse for SANDHYA.
[2022-03-05 20:45] VITALS: BP 117/55
[2022-03-05] MEDS: ONDANSETRON HCL/PF 4 MG/2 ML VIAL IV PRN (22:10)
[2022-03-06] MEDS: ENOXAPARIN SODIUM 40 MG/0.4 ML DISP.SYRIN SQ SCH (00:52)
[2022-03-06] MEDS: HYDROMORPHONE 1 MG/1 ML DISP.SYRIN IV PRN ×3 (03:03→13:50)
[2022-03-06 04:59] VITALS: BP 99/56
--- NOTE | 2022-03-06 07:39 | NUR ---
MS RN OPENING NOTE Patient in bed, awake. A/O x 4, able to make needs known. On O2 at 2 LPM, breathing evenly and unlabored. No SOB or s/s of distress noted. IV access on LAC #22 infusing D5NS at 50 ml/hr. NGT in place in LIS, no secretions at this time. Putnam catheter in place draining to an siena colored urine. Safety precautions in place: bed in low, locked position; siderails up x2; call light within reach. Will continue to monitor.
[2022-03-06 08:00] VITALS: BP 137/75
[2022-03-06 08:00] LABS: HEMATOCRIT 28 % (33-45); HEMOGLOBIN 9.8 g/dL (11.5-14.8); LYMPHOCYTES # (AUTO) 0.5 K/uL (0.8-4.8); LYMPHOCYTES % (AUTO) 5.1 % (20.0-44.0); MEAN CORPUSCULAR HGB CONC 35 g/dl (31.0-36.0); MEAN CORPUSCULAR VOLUME 89 fL (82-100); MONOCYTES # (AUTO) 0.9 K/uL (0.1-1.30); MONOCYTES % (AUTO) 8.9 % (2.0-12.0); NEUTROPHILS # (AUTO) 8.5 K/uL (1.8-8.9); PLATELET COUNT (AUTO) 357 K/uL (150-450); RED BLOOD CELL COUNT(AUTO) 3.12 MIL/uL (4.0-5.2)
[2022-03-06 08:18] LABS: CREATININE 0.6 mg/dL (0.6-1.3); MAGNESIUM 2.4 mg/dL (1.8-2.4); PHOSPHORUS 3.1 mg/dL (2.5-4.9); POTASSIUM 4.3 mmol/L (3.5-5.1)
[2022-03-06] MEDS: CEFEPIME 2 GM in IV D5W 100 ML IV SCH ×2 (10:25→21:20)
--- NOTE | 2022-03-06 10:33 | NUR ---
RN NOTE Patient complained of nausea, no emesis. PRN Reglan 10 mg given. Will continue to monitor.
--- NOTE | 2022-03-06 10:35 | NUR ---
RN NOTE Patient complained of pain on right knee and abdomen, 8/10 on pain scale. PRN Dilaudid 0.5 mg given. Will continue to monitor.
--- NOTE | 2022-03-06 13:50 | NUR ---
RN NOTE Patient complained of pain on right knee and abdomen, 8/10 on pain scale. PRN Dilaudid 0.5 mg given. Will continue to monitor.
[2022-03-06 16:00] VITALS: BP 143/60
--- NOTE | 2022-03-06 16:15 | NUR ---
RN NOTE Putnam catheter removed per Dr. Rogers order.
--- NOTE | 2022-03-06 19:00 | NUR ---
RN NOTE NGT 0 residual, removed per Dr. Rogers order. Diet changed to clear liquids.
--- NOTE | 2022-03-06 19:09 | NUR ---
MS RN CLOSING NOTE Patient in bed, awake. A/O x 4, able to make needs known. On room air, breathing evenly and unlabored. No SOB or s/s of distress noted. IV access on LAC #22 infusing D5NS at 50 ml/hr. All needs attended to. Due meds given. Safety precautions in place: bed in low, locked position; siderails up x2; call light within reach. Will endorse to security attendant nurse for SANDHYA.
--- NOTE | 2022-03-06 19:30 | NUR ---
noc rn opening note received patient in bed, a/ox4. no s/s of apparent distress in 2lpm of o2 via nc. pain tolerable at this time per patient. abdomen with dressing, dry and intact and with abdominal binder in place. rt. leg noted to have maximilian wrap on surgical site, clean, dry, and intact. L.AC #22g running D5NS @50mls/hr. call light within reach. safety in place. will continue with patient's plan of care.
[2022-03-06 20:00] VITALS: BP 126/71
[2022-03-06] MEDS ORDERED: ZOLPIDEM TARTRATE 10 MG TABLET PO ONE (22:30)
--- NOTE | 2022-03-06 22:40 | NUR ---
noc rn note patient requesting her ambien. per patient and to quote "I haven't slept for 2 days. I would really appreciate it if AI get my ambien tonight". messaged electronic tech, Tomás, ordered ONE time ambien 10 mg. order carried out.
[2022-03-07] MEDS: ENOXAPARIN SODIUM 40 MG/0.4 ML DISP.SYRIN SQ SCH ×2 (00:05→23:35)
--- NOTE | 2022-03-07 02:00 | NUR ---
noc rn note patient pulled IV out at this time. re-inserted on rt. wrist #20g.
--- NOTE | 2022-03-07 02:49 | NUR ---
noc rn note patient pulled IV out again at this time. refusing re-insertion at this time. will try again later.
[2022-03-07 07:43] LABS: BASOPHILS % (AUTO) 0.3 % (0.0-2.0); EOSINOPHILS % (AUTO) 2.2 % (0.0-6.0); HEMATOCRIT 28 % (33-45); HEMOGLOBIN 9.7 g/dL (11.5-14.8); LYMPHOCYTES # (AUTO) 1.4 K/uL (0.8-4.8); LYMPHOCYTES % (AUTO) 12.5 % (20.0-44.0); MEAN CORPUSCULAR HGB CONC 35 g/dl (31.0-36.0); MEAN CORPUSCULAR VOLUME 89 fL (82-100); MONOCYTES % (AUTO) 9.1 % (2.0-12.0); NEUTROPHILS # (AUTO) 8.2 K/uL (1.8-8.9); NEUTROPHILS % (AUTO) 75.9 % (43.0-81.0); PLATELET COUNT (AUTO) 472 K/uL (150-450); RED BLOOD CELL COUNT(AUTO) 3.14 MIL/uL (4.0-5.2); WHITE BLOOD COUNT (AUTO) 10.9 K/uL (4.3-11.0)
--- NOTE | 2022-03-07 07:51 | NUR ---
MS RN OPENING NOTE PATIENT RESTING IN BED, A/OX3-4 WITH INTERMITTENT CONFUSION. ABLE TO MAKE NEEDS KNOWN. ON ROOM AIR, WITH NO SIGS OF SOB, BREATHING EVEN AND NONLABORED.IV ACCESS ON LAC 22G WITH D5NS RUNNING @50ML/HR. NO SIGNS OF INFILTRATION. SAFETY PRECAUTIONS IN PLACE WITH BED IN THE LOWEST POSITION AND LOCKED. SIDE RAILS UPX2. BED TRAY AND CALL LIGHT WITHIN REACH.
[2022-03-07 08:00] VITALS: BP 146/74
[2022-03-07 08:00] LABS: CALCIUM, SERUM 8.1 mg/dL (8.5-10.1); CREATININE 0.7 mg/dL (0.6-1.3); MAGNESIUM 1.9 mg/dL (1.8-2.4); POTASSIUM 2.9 mmol/L (3.5-5.1)
--- NOTE | 2022-03-07 09:16 | NUR ---
RN NOTES RECEIVED CALL FROM DR JOHN WITH ORDER TO PLACE X-RAY OF ABDOMEN FOR F/U SBO. WILL CARRY OUT ORDER.
[2022-03-07] MEDS: CEFEPIME 2 GM in IV D5W 100 ML IV SCH ×2 (09:20→21:42)
[2022-03-07] MEDS: HYDROMORPHONE 1 MG/1 ML DISP.SYRIN IV PRN (09:43)
--- NOTE | 2022-03-07 09:45 | NUR ---
RN NOTE PT COMPLAINING OF PAIN. RATED AN 8 OUT OF 10. DILAUDID 0.5MG INJECTION GIVEN. WILL MONITOR AND REASSESS PATIENT
[2022-03-07] MEDS ORDERED: POTASSIUM CHLORIDE 20 MEQ POWDER PACKET PO ONE (10:00)
[2022-03-07] MEDS: POTASSIUM PHOSPHATE MM 7.5 MMOL in IV NS 0.9% 100 ML IV SCH ×5 (10:45→19:39)
[2022-03-07] MEDS: IV D5/ 0.9% NACL 1,000 ML IV PRN (11:05)
--- NOTE | 2022-03-07 13:40 | NUR ---
RN NOTES PATIENT WALKED WITH FWW WITH PHYSICAL THERAPIST. PT NOW BACK TO HER BED AND PHYSICAL THERAPIST PLACED PT ON CPM MACHINE ON RIGHT LOWER EXTREMITY.
[2022-03-07 16:00] VITALS: BP 138/54
--- NOTE | 2022-03-07 18:29 | NUR ---
MS RN CLOSING NOTE PATIENT IN BED; AWAKE, A/O X 3-4 WITH EPISODES OF CONFUSION, ABLE TO MAKE NEEDS KNOWN. STABLE ON ROOM AIR. BREATHING EVEN AND UNLABORED. NO SOB. NO COMPLAINTS OF PAIN OR DISCOMFORT AT THIS TIME. IV ACCESS @ MARGRET #22G, PATENT, INTACT RUNNING D5 NS @50ML/HR. ALL NEEDS ATTENDED TO AND MET AT THIS TIME. SAFETY MEASURES MAINTAINED. CALL LIGHT AND TABLE WITHIN REACH, SIDE RAILS UP X 2, BED IN LOWEST LOCKED POSITION. WILL ENDORSE SANDHYA TO GLUE MIXER NURSE
[2022-03-07 20:00] VITALS: BP 127/63
--- NOTE | 2022-03-07 21:21 | NUR ---
MS RN OPENING NOTE PATIENT RESTING IN BED, A/OX3-4 WITH INTERMITTENT CONFUSION. ABLE TO MAKE NEEDS KNOWN. ON ROOM AIR, WITH NO SIGS OF SOB, BREATHING EVEN AND NONLABORED. IV ACCESS ON LAC 22G WITH D5NS RUNNING @50ML/HR. NO SIGNS OF INFILTRATION. SAFETY PRECAUTIONS IN PLACE WITH BED IN THE LOWEST POSITION AND LOCKED. SIDE RAILS UPX2. BED TRAY AND CALL LIGHT WITHIN REACH. WILL CONTINUE TO MONITOR.
[2022-03-07] MEDS ORDERED: GUAIFENESIN/CODEINE 10 ML UDC PO PRN (22:30)
--- NOTE | 2022-03-07 23:08 | NUR ---
RN NOTES - PATIENT IS COMPLAINING OF ABDOMINAL PAIN WHILE COUGHING. REQUESTED FOR A COUGH SYRUP. INFORMED ON-CALL DOCTOR, ORDERED ROBITUSSIN AC 5ML SYRUP PRN. MED GIVEN. TOLERATED WELL. KEPT COMFORTABLE. WILL CONT TO MONITOR.
--- NOTE | 2022-03-08 05:55 | NUR ---
RN NOTES - PATIENT VERBALIZED CONCERN OF HAVING HER LEVOTHYROXINE SUPPLEMENTATION, S/P THYROID RESECTION-THYROID CA. SHES COUGHING AND MAY BENEFIT TO HAVE BREATHING TX. WILL ENDORSE TO NEXT SHIFT RN.
--- NOTE | 2022-03-08 06:38 | NUR ---
MS RN CLOSING NOTE PATIENT IN BED; AWAKE, A/O X 3-4 WITH EPISODES OF CONFUSION, ABLE TO MAKE NEEDS KNOWN. STABLE ON ROOM AIR. BREATHING EVEN AND UNLABORED. NO SOB. NO COMPLAINTS OF PAIN OR DISCOMFORT AT THIS TIME. IV ACCESS @ MARGRET #22G, PATENT, INTACT RUNNING D5 NS @50ML/HR. ALL NEEDS ATTENDED TO AND MET AT THIS TIME. SAFETY MEASURES MAINTAINED. CALL LIGHT AND TABLE WITHIN REACH, SIDE RAILS UP X 2, BED IN LOWEST LOCKED POSITION. WILL ENDORSE TO NEXT SHIFT RN FOR SANDHYA.
--- NOTE | 2022-03-08 08:00 | NUR ---
RN OPENING NOTE PATIENT AWAKE IN BED RESTING AT THE MOMENT A/O X 3-4. NO S/S OF PAIN NOTED AT THIS TIME. ON ROOM AIR, NO DISTRESS OR SHORTNESS OF BREATH NOTED. IV ACCESS LAC #22G, INTACT, PATENT AND FLUSHING WELL. FALL AND SAFETY MEASURES IN PLACE, BED ALARM ON, BED IN LOW AND LOCK POSITION, CALL LIGHT AND TABLE WITHIN EASY REACH, SIDE RAILS UP X2. WILL CONTINUE TO MONITOR.
[2022-03-08 08:22] LABS: CREATININE 0.6 mg/dL (0.6-1.3); PHOSPHORUS 3.6 mg/dL (2.5-4.9); POTASSIUM 2.9 mmol/L (3.5-5.1)
[2022-03-08] MEDS: CEFEPIME 2 GM in IV D5W 100 ML IV SCH (08:53)
[2022-03-08] MEDS ORDERED: POTASSIUM CHLORIDE 20 MEQ POWDER PACKET PO SCH (10:00)
[2022-03-08] MEDS ORDERED: oxyCODONE IR immediate release 5 MG PO PRN (10:00)
[2022-03-08] MEDS: POTASSIUM CL. PREMIX PERIPHER. 50 ML IV SCH ×4 (10:46→14:45)
[2022-03-08] MEDS ORDERED: ALBUTEROL FS 2.5 MG/3 ML VIAL.NEB NEB PRN (11:00)
[2022-03-08] MEDS ORDERED: LEVOTHYROXINE SODIUM 88 MCG TABLET PO SCH (11:00)
[2022-03-08 16:00] VITALS: BP 127/64
--- NOTE | 2022-03-08 18:00 | NUR ---
PINSETTER MECHANIC AUTOMATIC NOTE PATIENT DISCHARGE IN STABLE MEDICAL CONDITION, A/O X4. V/S TAKEN, STABLE AND RECORDED. NO IV ACCESS. NAME BAND REMOVED. SKIN ASSESSMENT NOT DONE PATIENT REFUSED ASSESSMENT AND PICTURES. ALL BELONGINGS CHECKED AND BELONGINGS LIST SIGNED. HEALTH TEACHING AND DISCHARGE INSTRUCTIONS GIVEN TO PATIENT AND NURSE AT FACILITY, VERBALIZED UNDERSTANDING. REPORT GIVEN TO NURSE ALY WALSH AT [facility] [phone]. INSTRUCTED PATIENT TO FOLLOW WITH DR JOHN WITH IN 1 WEEK FOR STAPLE REMOVAL. DISCUSSED PRESCRIPTIONS WITH PATIENT. INSTRUCTED PATIENT IN CASE OF EMERGENCY TO CALL 911 OR GO TO NEAREST ER. PATIENT LEFT UNIT VIA GURNEY WITH NO SIGN OF DISTRESS ACCOMPANIED BY PARAMEDICS. CHARGE NURSE AWARE OF DISCHARGE.
[2022-03-09] MEDS ORDERED: ALBUTEROL FS 2.5 MG/3 ML VIAL.NEB NEB ONE (10:44)
== END 2022-03-08 18:04 | DRG 469 ==
LOC: DS 06:19 → MED 06:20
PROVIDERS: ADMIT Internal Medicine; ATTEND Nurse Practitioner Acute Care
PROC: 0SRC069 Replacement of Right Knee Joint with Oxidized Zirconium on Polyethylene Synthetic Substitute, Cemented, Open Approach (ICD-10-PCS; principal; 2022-02-27)
PROC: 0DN80ZZ Release Small Intestine, Open Approach (ICD-10-PCS; 2022-03-05)
DX: M17.11 Unilateral primary osteoarthritis, right knee (principal); J18.9 Pneumonia, unspecified organism; K56.50 Intestinal adhesions [bands], unspecified as to partial versus complete obstruction; Z20.822 Contact with and (suspected) exposure to COVID-19; K21.9 Gastro-esophageal reflux disease without esophagitis; E78.00 Pure hypercholesterolemia, unspecified; E89.0 Postprocedural hypothyroidism; I10 Essential (primary) hypertension; Z85.850 Personal history of malignant neoplasm of thyroid; Z98.84 Bariatric surgery status; E87.6 Hypokalemia; E83.39 Other disorders of phosphorus metabolism; F32.A Depression, unspecified; F41.9 Anxiety disorder, unspecified; I48.91 Unspecified atrial fibrillation; Z79.01 Long term (current) use of anticoagulants
CPT/HCPCS: 36415; 71045-TC; 74018; 74250-TC; 80048-TC; 80076-TC; 83735-TC; 84100-TC; 85025-TC; 85027-TC; 87081-TC; 88305-TC; 88311-TC; 93971-TC; 94799-TC; 97112-TC; 97116-TC; 97530-TC; 97760-TC; A4217; A6209; A6253; A6403; C1713; C1776; C9803; G0378; J0330; J0690; J0692; J1100; J1170; J1650; J1885; J2405; J2704; J2765; J3010; J3480; J3490; J7030; J7040; J7042; J7060; L1830; Q9963; U0003